=== PATIENT | female | born 1940 | race Asian ===

== ENCOUNTER 2016-09-24 08:31 | Emergency (ER) | payer MEDICARE, MEDICAID ==
[~2016-09-24] VITALS: Ht 157.5 cm; Wt 45.0 kg
[2016-09-24 08:46] VITALS: BP 0/0
[2016-09-24] MEDS ORDERED: LORA0.5T2 PO (08:51)
[2016-09-24] MEDS ORDERED: DIVAL250 PO (08:51)
[2016-09-24] MEDS ORDERED: QUET25TA PO (08:51)
[2016-09-24] MEDS ORDERED: EPINEPHRINE 0.1MG/ML (1:10,000) 10ML SYR ONE ×2 (08:59→13:10)
[2016-09-24] MEDS ORDERED: SODIUM BICARBONATE 7.5% 0.9 MEQ/ML 50ML SYR IV ONE (13:10)
[2016-09-24] MEDS ORDERED: DEXTROSE 50% WATER 50ML SYRINGE IV ONE (13:10)
[2016-09-24] MEDS ORDERED: CALCIUM CHLORIDE 1GM/10ML SYR IV ONE (13:10)
[2016-09-24] MEDS ORDERED: MAGNESIUM SULFATE 4G IN WATER 100ML PREMIX IV ONE (13:10)
== END 2016-09-24 09:02 | disposition expired ==
LOC: ER 08:46
PROC: 0BH18EZ Insertion of Endotracheal Airway into Trachea, Via Natural or Artificial Opening Endoscopic (ICD-10-PCS; principal; 2016-09-24)
DX: I46.9 Cardiac arrest, cause unspecified (principal); I10 Essential (primary) hypertension; E11.9 Type 2 diabetes mellitus without complications
CPT/HCPCS: 31500; 82962; 99285; J0171; J3475; J3490